=== PATIENT | female | born 1950 | race Asian ===

== ENCOUNTER 2024-12-10 13:10 | Emergency (ER) | payer MEDICARE, MEDICAID ==
[~2024-12-10] VITALS: Ht 157.5 cm; Wt 53.0 kg
[~2024-12-10 13:10] MED LIST: AMLO5TAB16 PO; ASPI-1265 PO; ATOR20TA66 PO
[2024-12-10 13:13] VITALS: TEMP 99
[2024-12-10 13:39] LABS: BASOPHILS % (AUTO) 0.8 % (0-1); EOSINOPHILS # (AUTO) 0.1 X10'3 (0-0.9); HEMATOCRIT 41.9 % (35.0-45.0); HEMOGLOBIN 13.9 g/dl (12.0-16.0); LYMPHOCYTES # (AUTO) 1.9 X10'3 (1.1-4.8); LYMPHOCYTES % (AUTO) 30.8 % (21-51); MEAN CORPUSCULAR HEMOGLOBIN 30.2 PG (27.0-31.0); MEAN CORPUSCULAR HGB CONC 33.3 g/dL (33.0-36.5); MEAN CORPUSCULAR VOLUME 90.8 FL (78-98); MEAN PLATELET VOLUME 7.6 FL (7.4-10.4); MONOCYTES # (AUTO) 0.3 X10'3 (0-0.9); MONOCYTES % (AUTO) 5.7 % (2-12); NEUTROPHILS # (AUTO) 3.7 X10'3 (1.8-7.7); NEUTROPHILS % (AUTO) 61.7 % (42-75); PLATELET COUNT 299 X10'3 (140-440); RED BLOOD COUNT 4.61 X10'6 (4.20-5.60); RED CELL DISTRIBUTION WIDTH 13.9 % (11.5-14.5)
[2024-12-10 13:51] LABS: ALBUMIN 3.8 G/DL (3.4-5.0); ANION GAP 7 (8-16); BLOOD UREA NITROGEN 23 MG/DL (7-18); BUN/CREATININE RATIO 16.9 (10.0-20.0); CALCIUM 9.4 MG/DL (8.5-10.1); CHLORIDE 107 MMOL/L (99-107); CREATININE 1.36 MG/DL (0.40-0.90); GLUCOSE 149 MG/DL (70-104); POTASSIUM 4.1 MMOL/L (3.5-5.1); SODIUM 144 MMOL/L (135-145); TOTAL CARBON DIOXIDE 29.9 MMOL/L (24-32); eCRCL 29 ML/MIN; eGFR 38 ML/MIN
[2024-12-10 13:55] LABS: APTT 25 SECONDS (22-32); PROTHROMBIN TIME 10.2 SECONDS (9.0-12.0)
--- NOTE | 2024-12-10 14:14 | RADIOLOGY REPORT ---
CT CT STROKE ALERT Indication: Stroke Alert EXAM DATE: 12/10/2024 01:41 PM COMPARISON: CT CT HEAD on DOS: 11/29/24 TECHNIQUE: CT of the head without intravenous contrast. RADIATION DOSE: CTDIvol: 52 mGy, DLP: 197 mGy*cm FINDINGS: There is no intracranial hemorrhage. There is no extra-axial fluid, mass, mass effect or midline shif t. The ventricles are midline and normal in size. Cavum septum pellucidum. Basilar cisterns are paten t. Right parietotemporal encephalomalacia. Moderate periventricular and subcortical white matter chr onic microvascular ischemic changes. Old basal ganglia lacunar infarcts. Old bilateral hurtado radia ta infarcts. Old left pontine infarct. The paranasal sinuses and mastoids are well-pneumatized. Imaged portion of the orbits are unremarkabl e. IMPRESSION: No intracranial hemorrhage or mass effect. Moderate chronic microvascular ischemic changes. Old infarcts as described. Recommend MRI brain to e xclude superimposed acute infarction.
--- NOTE | 2024-12-10 14:32 | RADIOLOGY REPORT ---
CHEST RADIOGRAPH Indication: Stroke Alert Technique: Single frontal view of the chest was obtained Comparison: None FINDINGS: The cardiac silhouette is unremarkable. The lungs demonstrate no definitive pulmonary airspace consol idation. The pulmonary vasculature is unremarkable. There is no pleural effusion.. There is no pneumo thorax. Aortic atherosclerotic disease. Bilateral breast implants which overall obscures evaluation . IMPRESSION: No pulmonary airspace consolidation.
--- NOTE | 2024-12-10 15:35 | [facility] CONSULT REPORT ---
[facility] Procedure Note [facility] Procedure Note Consult [facility] Note # Demographics Consult Type: Acute Stroke Level 2 (4.5-24 hrs) Patient Location: Emergency Room First Name: DIYA Last Name: YONATAN Date of : 1950 Age: 74 Gender: Female Facility: [facility] Time of Initial Page (): 12/10/2024 14:57 Time of Return Call ( Time): 12/10/2024 14:58 # HPI Chief Complaint: - numbness History: 74 y/o F presented with feeling stressed. She states she feels numbness in the R shoulder and tingling in the RLE. She feels she can't sit still. She says she feels weak while walking. She says she was fine when she left the hospital but has a lot anxiety. She has mild headache and feels her speech is slow. She is very tearful and says she gets like this when she feels stressed out. She was admitted to the hospital and discharged on 11/29 for R sided weakness and numbness, stroke work-up was negative. Last Known Normal: last night # Scores Time of exam and NIHSS (): 12/10/2024 15:13 Level of Consciousness 1a: [0] = Alert; keenly responsive LOC Questions 1b: [0] = Answers both questions correctly LOC Commands 1c: [0] = Performs both tasks correctly Best Gaze 2: [0] = Normal Visual 3: [0] = No visual loss Facial Palsy 4: [0] = Normal symmetrical movements Motor Arm Left 5a: [0] = No drift Motor Arm Right 5b: [0] = No drift Motor Leg Left 6a: [0] = No drift Motor Leg Right 6b: [0] = No drift Limb Ataxia 7: [0] = Absent Sensory 8: [1] = Rxzf-eu-pifpabid sensory loss Best Language 9: [0] = No aphasia Dysarthria 10: [0] = Normal Extinction and Inattention 11: [0] = No abnormality NIHSS Total: 1 # Exam SBP: 152 DBP: 81 # Data Head CT: - no bleed - per radiologist read # Assessment Impression: R sided paresthesias, patchy in distribution, seems less likely to be stroke related, had a recent negative MRI Brain, etiology may be recrudescence of prior infarcts seen on CT vs. stress induced # Plan Thrombolytic/Intervention: NOT IV Thrombolysis or IA Intervention candidate Thrombolytic Exclusion (< 3 hour window): - non-disabling deficit Intraarterial Exclusion: - clinical exam not consistent with presence of large vessel occlusion (LVO), can reconsider if LVO found on vascular imaging Labs: - CBC - comprehensive metabolic panel - urine drug screen - ua Imaging: (urgency: routine): - MRI Brain without contrast Medication: - aspirin 81 mg daily - start statin with goal of LDL < 70 Other: - If patient has any neurological deterioration please call me back immediately - would not pursue stroke work-up if MRI is negative - I have discussed my recommendations with the referring provider # Logistics Attestation of consult completion: The patient is located at: [facility]. Facility staff participated in the visit. I performed this telemedicine visit from my offsite office utilizing interactive 2 way audio and visual telecommunication technology. Total time spent in telemedicine encounter: I spent 20 minutes reviewing clinical data and/or imaging, obtaining history, examining the patient, commun icating with the onsite care team, and in preparation of this report. # Demographics First Name: DIYA Last Name: YONATAN Facility: [facility] Electronically signed at 12/10/2024 15:35 ([place] Time) by Triston Mahajan MD Neuro Consult Order placed for: Yes TRISTON MAHAJAN MD Dec 10, 2024 15:35
--- NOTE | 2024-12-10 15:57 | ELECTROCARDIOGRAPH REPORT ---
[facility] Test Date: 2024-12-10 Test Time: 13:37:58 Pat Name: DIYA TAM Department: EMERGENCY ROOM Room: Gender: F Records Analyst: VALERIA : 1950 Requested By: FLORIAN MONTEJO Order Number: [id number] Reading MD: Dr. Robe Doshi Measurements Intervals [place] Rate: 88 P: 69 MI: 130 QRS: 83 QRSD: 96 T: 35 QT: 377 QTc: 457 Interpretive Statements Sinus rhythm Multiple ventricular premature complexes Probable left atrial enlargement Borderline right axis deviation Electronically Signed On 12-18-2024 18:42:[address] Robe Doshi Please click the below link to view image of tracing.
--- NOTE | 2024-12-10 17:26 | Physician Documentation ---
History of Present Illness ~ Chief Complaint: Stroke Alert Stated Complaint: LEG NUMBNESS AND SHOULDER PAIN Time Seen by MD: 14:51 Primary Medical Doctor: Dr. Octavio Mendoza. In [place]. Mode of Arrival: Dropped Off HPI 74-year-old female with a past history of stroke, who presents with right arm weakness and numbness. Prior to my evaluation, the patient was made a stroke alert, and a stroke workup was begun. When I speak to the patient, she primarily tells me about stress related to her living situation. She tells me that she is having issues with the person she lives with as well as financial issues related to her housing. It is actually difficult to get her to redirect and talk about any actual physical symptoms. The patient tells me that when she gets stressed about all these symptoms, she feels like her right arm becomes numb and weak. She says that she gets dizzy and tearful, and sometimes feels like it is hard for her to talk. She denies current lightheadedness. She denies any difficulty speaking. She denies any vision changes. She denies any fevers or infectious symptoms. She denies any leg weakness. Medication Reconciliation Allergies: Coded Allergies: No Known Allergies (Unverified , 11/29/24) Scheduled Amlodipine Besylate (Amlodipine Besylate), 1 TAB PO DAILY Aspirin (Aspirin), 1 TAB PO DAILY Atorvastatin Calcium (Atorvastatin Calcium), 80 MG PO DAILY Past Medical History Past Medical History: CVA/TIA/Stroke, High Cholesterol, Hypertension Alcohol Use: Rarely Drug Use: none Lives with: Other Lives In: Home Occupation: retired Review of Systems Constitutional: Denies: fever Neurological: Reports: headache, right sided numbness, right sided weakness Physical Exam Vital Signs: Temperature: 99.0, Source: Temporal, Heart Rate: 87, Respiratory Rate: 17, BP: 152/81, Pulse Oximetry: 100, Weight: 53.000 Oxygen Flow Rate: 0 General Appearance General: This is a very anxious appearing older woman who is pacing around the room, talking rapidly on her telephone when I enter HEENT: Atraumatic, oropharynx is moist Heart: Regular rate and rhythm, normal-appearing peripheral perfusion Lungs: Clear breath sounds bilateral, normal work of breathing, normal oxygen saturation on room air Abdomen: Soft, nondistended Neuro: Alert and oriented, the patient is ambulating without apparent difficulty when I enter the room. Speech is clear. No facial droop. She is using both arms to gesture and to use her phone, without obvious weakness or difficulty. Right upper extremity: The patient does report diminished sensation to the right arm in a patchy distribution. Strength appears grossly intact at the major muscle groups. Left upper extremity: No focal weakness or numbness reported Lower extremities: No focal weakness or numbness NIH score of 1 for right arm paresthesias Psychiatric: The patient appears extremely anxious, difficult to redirect, speaking rapidly and sometimes with pressured speech Progress Results/Orders Results/Orders Orders - FLORIAN MONTEJO MD Monitor (12/10/24 13:29) 2 Large Bore Ivs (12/10/24 13:29) Chest,Single View (12/10/24 13:29) Accucheck (12/10/24 13:29) Ct Stroke Alert (12/10/24 13:49) Mri Head (12/10/24 16:43) Completed Orders - FLORIAN MONTEJO MD Cbc/Diff (12/10/24 13:29) Electrocardiogram (12/10/24 13:29) Chest,Single View (12/10/24 13:29) Ct Stroke Alert (12/10/24 13:49) BMP (12/10/24 13:29) PTT (12/10/24 13:29) Pt Inr (12/10/24 13:29) Mri Head (12/10/24 16:43) Vital Signs 12/10/24 12/10/24 12/10/24 12/10/24 13:13 15:00 15:22 17:28 Temp 99.0 Pulse 83 87 82 Resp 16 17 18 B/P (MAP) 121/81 152/81 (104) 153/80 Pulse Ox 98 100 98 O2 Flow Rate 0 Laboratory Tests Test 12/10/24 13:22 12/10/24 13:32 Glucometer 175 H White Blood Count 6.0 Red Blood Count 4.61 Hemoglobin 13.9 Hematocrit 41.9 Mean Corpuscular Volume 90.8 Mean Corpuscular Hemoglobin 30.2 Mean Corpuscular Hemoglobin Concent 33.3 Red Cell Distribution Width 13.9 Platelet Count 299 Mean Platelet Volume 7.6 Neutrophils (%) (Auto) 61.7 Lymphocytes (%) (Auto) 30.8 Monocytes (%) (Auto) 5.7 Eosinophils (%) (Auto) 1.0 Basophils (%) (Auto) 0.8 Neutrophils # (Auto) 3.7 Lymphocytes # (Auto) 1.9 Monocytes # (Auto) 0.3 Eosinophils # (Auto) 0.1 Basophils # (Auto) 0.0 CBC Comment Prothrombin Time 10.2 INR International Normalized Ratio 1.0 Activated Partial Thromboplast Time 25 Coagulation Comments Sodium Level 144 Potassium Level 4.1 Chloride Level 107 Carbon Dioxide Level 29.9 Anion Gap 7 L Blood Urea Nitrogen 23 H Creatinine 1.36 H Estimated GFR/1.73 m2 38 BUN/Creatinine Ratio 16.9 Glucose Level 149 H Calcium Level 9.4 Albumin 3.8 Chemistry Comments Consults/PCP Consults/PCP : Additional Comment Consult: Stroke neurology consulted for evaluation. -they recommend against tPA/TNK. -they recommend repeat MRI, if normal, then the patient can likely go home with outpatient follow up Medical Decision Making Differential Dx:Considerations: Include: CVA, Electrolyte imbalance, Encephalopathy, Mass lesion, Subarachnoid Hemorrhage, TIA Additional Information Differential includes anxiety or stress reaction Assessment The patient presents with right arm numbness and reported weakness, in the setting of significant stress. Her initial exam was difficult due to her anxiety and desire to talk about her life stressors. She may have some mild paresthesias to the right arm, but no other focal neurologic changes. Stroke order set was initiated, and overall is unremarkable. Stroke neurology recommended repeat MRI. We were able to obtain the MRI here in the emergency department, which showed no acute changes. Again, I suspect her symptoms are related to stress given her unremarkable workup. The patient requested to go home prior to the MRI results, and so she was discharged with outpatient follow up. Departure Disposition: 01 HOME / SELF CARE / HOMELESS Impression: Primary Impression: Stress reaction Additional Impression: Transient cerebral ischemia Condition: Improved Referrals: NO PRIMARY CARE PROVIDER (PCP) Education Educated: Patient Critical Care Note Critical Care Note Critical Care Note The very real possibility of a deterioration of this patient's condition required the highest level of my preparedness for sudden, emergent intervention. I provided critical care services, which included medication orders, frequent reevaluations of the patient's condition and response to treatment, ordering and reviewing test results, and discussing the case with various consultants. Excludes time spent performing separately billable procedures. The critical care time associated with the care of the patient was 45 minutes in the management of an acute stroke or TIA Signature Scribe Signature: na Attestation: FLORIAN Minor MD Dec 10, 2024 17:26
[2024-12-10 17:28] VITALS: BP 153/80; PULSE 82; RESP 18; O2SAT 98
--- NOTE | 2024-12-10 17:36 | RADIOLOGY REPORT ---
PROCEDURE: MR MRI HEAD Indication: Possible stroke, right-sided tingling and weakness COMPARISON: 12/10/2024 TECHNIQUE: Multiplanar multisequence images of the brain are obtained. FINDINGS: There is no abnormal diffusion restriction. Cavum septum pellucidum. Moderate periventricular and sub cortical white matter T2 and FLAIR hyperintense changes. Old bilateral basal ganglia, hurtado radiata infarcts. Right parietal / temporal encephalomalacia. Old left pontine infarct. Moderate global cere bral volume loss There is no intracranial hemorrhage. No extra-axial fluid collection, mass effect or midline shift. The ventricles are midline and normal in size. The cisterns are patent. Normal intrac ranial flow voids are preserved. No abnormal susceptibility signal. The sinuses and mastoids are well pneumatized. The visualized orbits are unremarkable. IMPRESSION: No acute cerebrovascular ischemia. Moderate chronic microvascular ischemic changes. Old infarcts/ encephalomalacia as described.
== END 2024-12-10 17:31 | disposition home or self-care (01) ==
LOC: ER 13:11
DX: F43.9 Reaction to severe stress, unspecified (principal); G45.9 Transient cerebral ischemic attack, unspecified; E78.00 Pure hypercholesterolemia, unspecified; F41.9 Anxiety disorder, unspecified; I10 Essential (primary) hypertension; Z86.73 Personal history of transient ischemic attack (TIA), and cerebral infarction without residual deficits
CPT/HCPCS: 36415; 70450; 70551; 71045; 80048; 82948; 85025; 85610; 85730; 93005; 99291